=== PATIENT | female | born 1960 | race African-American/Black ===

== ENCOUNTER 2017-12-27 07:43 | Day surgery (SDC) | payer BC ==
[2017-12-26 10:41] VITALS: BMI 33.7
[2017-12-27] MEDS ORDERED: BUPIVACAINE HCL/PF 0.5% (5MG/ML) 10 ML VIAL ONE (09:56)
[2017-12-27] MEDS ORDERED: DEXAMETHASONE SOD PHOSPHATE/PF 10 MG/ML SDV ONE (09:56)
[2017-12-27] MEDS ORDERED: MIDAZOLAM HCL 2 MG/2 ML SINGLE DOSE VIAL ONE ×2 (10:03)
--- NOTE | 2017-12-27 10:07 | HP ---
[facility]ellite [facility] - Chief Complaint Chief Complaint: right shoulder pain - Past Medical History Allergies/Adverse Reactions: Allergies Allergy/AdvReac Type Severity Reaction Status Date / Time No Known Allergies Allergy Verified 12/27/17 08:29 - Current Medications Current Medications: Home Medications Medication Instructions Recorded Atorvastatin Ca [Lipitor] 10 mg PO DAILY 12/26/17 Lisinopril/Hydrochlorothiazide 1 each PO DAILY 12/26/17 [Lisinopril-Hctz 10-12.5 mg Tab] Mv-Mn/Folic Acid/Calcium/Vit K 1 each PO DAILY 12/26/17 [Women's 50 Plus Daily Formula] Ranitidine [Zantac -] 150 mg PO DAILY 12/26/17 Oxycodone HCl/Acetaminophen 1 - 2 tab PO Q6H #50 tab MDD 8 12/27/17 [Percocet 5-325 mg Tablet] Satellite Physical Exam - Physical Examination Vital Signs: Vital Signs Period Temp Pulse Resp BP Sys/Charles Pulse Ox Last 24 Hr 97.6 F 79 18 150/84 97 General Appearance: Well Nourished, Well Developed, Alert & Oriented x3 ENT: Clear Lung: Normal air movement Heart: Regular rate & rhythm Extremities: Other (right shoulder- + ttp, decr rom, + neer, + fay, + empty can, nvi MRI + rct) Neurological: Intact, Alert, Oriented Satellite Impression/Plan - Impression/Plan Impression: right shoulder rct Operative Procedure: right shoulder arthroscopy with RCR, SAD Date to be Performed: 12/27/17
[2017-12-27] MEDS ORDERED: DEXAMETHASONE SOD PHOSPHATE 4 MG/1 ML VIAL ONE (10:35)
[2017-12-27] MEDS ORDERED: fentaNYL CITRATE 250 MCG/5 ML VIAL ONE (10:35)
[2017-12-27] MEDS ORDERED: LIDOCAINE HCL/PF 2% SDV 5ML VIAL ONE (10:35)
[2017-12-27] MEDS ORDERED: PROPOFOL 20 ML ONE (10:36)
[2017-12-27] MEDS ORDERED: ROCURONIUM BROMIDE 50 MG/5 ML VIAL ONE (10:36)
[2017-12-27] MEDS ORDERED: ceFAZolin SODIUM 1 GM VIAL IVPB ONE (10:44)
[2017-12-27] MEDS ORDERED: ceFAZolin SODIUM 1 GM VIAL ONE (10:44)
[2017-12-27] MEDS ORDERED: GLYCOPYRROLATE 0.2 MG/1 ML VIAL ONE ×2 (11:44)
[2017-12-27] MEDS ORDERED: NEOSTIGMINE METHYLSULFATE 0.5 MG/ML - 10 ML MDV ONE (11:44)
--- NOTE | 2017-12-27 11:53 | OP ---
Operative Note - Note: Operative Date: 12/27/17 ([facility]) Pre-Operative Diagnosis: right shoulder rct Operation: right shoulder arthroscopy with RCR, SAD Implants: arthrex speedbridge, 1 swivelock Post-Operative Diagnosis: Same as Pre-op Surgeon: Crow Mccabe Lead Pressman [employer] Printing: Michael Berger) Anesthesiologist/HOOK UP: Darryl Gates Anesthesia: General, Local Specimens Removed: shavings Estimated Blood Loss (mls): 5 Operative Report Dictated: Yes
[2017-12-27] MEDS ORDERED: ONDANSETRON 4 MG/2 ML VIAL IVPUSH PRN (12:58)
[2017-12-27] MEDS ORDERED: oxyCODONE HCL 5 MG TABLET PO PRN (12:58)
[2017-12-27] MEDS ORDERED: LACTATED RINGERS SOLUTION 1,000 ML IV SCH (13:00)
[2017-12-27 13:23] VITALS: TEMP 97.6
[2017-12-27] MEDS ORDERED: ONDANSETRON 4 MG/2 ML VIAL ONE (14:19)
--- NOTE | 2017-12-27 14:50 | SPEC ---
DATE OF OPERATION: 12/27/2017 PREOPERATIVE DIAGNOSIS: Right rotator cuff tear. POSTOPERATIVE DIAGNOSIS: Right rotator cuff tear. PROCEDURE: Arthroscopy, right shoulder, with subacromial debridement of bone and soft tissue, and arthroscopic rotator cuff repair with SpeedBridge. SURGICAL ATTENDING: Michael Berger MD BEHAVIORAL HEALTH CASE MANAGER: LAW Bruno ANESTHESIA: Regional and general. CLOSURE: A SpeedBridge for rotator cuff and 3-0 nylon for skin. ESTIMATED BLOOD LOSS: Negligible. COMPLICATIONS: None. CONDITION: To the recovery room in stable condition. DESCRIPTION OF PROCEDURE: The patient was taken to the operating room on December 27, 2017. General and regional anesthesia was administered by the anesthesiologist. IV Kefzol was administered prophylactically prior to the case. The patient was placed in the beach chair position with all prominences well padded. The right shoulder area was prepped and draped in the usual sterile fashion. First, a diagnostic arthroscopy of the glenohumeral joint was made. Posterior portal was made 2 fingerbreadths below the acromion with a 15 blade followed by a blunt trocar. Circumferential exam of the glenohumeral joint revealed the following: Intact labrum circumferentially, intact glenoid and humeral head articular cartilage, intact biceps and biceps anchor, intact subscapularis through its insertion. Looking superiorly, there was a large rotator cuff tear. The fluid was drained from the shoulder, and the trocar was removed. The posterior trocar was redirected in the subacromial space. An accessory lateral and anterior portal were made with a 15 blade followed by a blunt trocar. The lateral portal was used as the working portal. Through this portal, an ArthroCare device was applied. This was used to debride the soft tissue in the subacromial aspect. The coracoacromial ligament was identified and detached off the anterior acromion and was visualized to drop inferiorly and was further debrided. The bone on the undersurface of the acromion was burred to the appropriate level giving appropriate height for the rotator cuff beneath. Looking inferiorly, there was a large rotator cuff tear, soft tissue encasing the rotator cuff, and the deltoid recess was debrided using ArthroCare device and the shaver. The bed on the greater tuberosity was burred to give a good bed for the double row SpeedBridge repair. A grasper was used to ensure that the rotator cuff was able to be reduced sufficiently to the greater tuberosity. The rotator cuff was freed on the bursal and the articular surface to allow more excursion of the tendon. Two anchors preloaded with FiberTape suture were placed on the articular margin, one more anteriorly, one more posteriorly. They were shuttled through the anterior portal with a grasper. Each limb was individually passed through the rotator cuff, two anteriorly and two posteriorly. One anterior limb and one posterior limb was delivered through the lateral portal. They were placed through the eyelet hole of the more lateral anchor, which was then malleted into place much more laterally, reducing the rotator cuff to the greater tuberosity. The swivel was then screwed into place. The sutures were then cut flush with the bone. Next, one anterior and one posterior limb that was remaining were shuttled from the anterior to the lateral portal. The sutures were placed through the eyelet hole of the anterior anchor, which was malleted on the anterior aspect of the greater tuberosity. After tensioning it, it was deployed the entire way and then screwed home giving an excellent reduction to the anterior portion of the rotator cuff. After the sutures were cut, the rotator cuff was probed and found to have good stability with excellent matting down of the rotator cuff to the greater tuberosity. The shoulder was taken through the range of motion and found to have good clearance on the undersurface of the acromion with good, solid repair. The shoulder was drained of the fluid. The portals were closed with 3-0 nylon suture. A sterile pressure dressing followed by a shoulder immobilizer was applied. The patient was awoken from anesthesia and transferred to recovery room in stable condition. No complications. Estimated blood loss negligible. Johnny [id number]
[2017-12-27 15:27] VITALS: BP 140/74; PULSE 79
--- NOTE | 2017-12-28 17:45 | PATH ---
Surgical Pathology Report Patient Name: JANETTE EASON [facility]. Rec. #: [id number] /Age/Gender: 1960 (Age: 57) / F Account: [id number] Location: [facility] SURGICAL Taken: 12/27/2017 Received: 12/27/2017 Reported: 12/28/2017 Physicians: Michael Berger M.D. Specimen(s) Received RIGHT SHOULDER SHAVINGS Clinical History Right shoulder tear Final Diagnosis SHOULDER SHAVINGS, RIGHT, ARTHROSCOPY: FRAGMENTS OF BENIGN CARTILAGE, SYNOVIUM, AND FIBROADIPOSE TISSUE. Electronically Signed Zohra Corona M.D. Gross Description Received in formalin, labeled "right shoulder shavings," is a 4.3 x 4.0 x 0.3 cm. aggregate of lechuga-yellow soft tissue fragments. A solar sales representative and assessor portion is submitted in one cassette. /12/27/201712/27/2017
--- NOTE | 2018-01-01 10:42 | SPEC ---
DATE OF OPERATION: 12/27/2017 PREOPERATIVE DIAGNOSIS: Right rotator cuff tear. POSTOPERATIVE DIAGNOSIS: Right rotator cuff tear. PROCEDURE: Right shoulder arthroscopy, subacromial debridement of bone and soft tissue, and a right rotator cuff repair arthroscopic with SpeedBridge. SURGICAL ATTENDING: Crow Mccabe MD INVESTIGATIVE RESEARCH SPECIALIST: LAW Bruno and Michael Berger MD ANESTHESIA: Regional and general. CLOSURE: An Arthrex SpeedBridge for repair, 3-0 nylon for skin. ESTIMATED BLOOD LOSS: Negligible. COMPLICATIONS: None. CONDITION: To the recovery room in stable condition. DESCRIPTION OF PROCEDURE: The patient was taken to the operating room on December 27, 2017. General and regional anesthesia was administered by the anesthesiologist. IV Kefzol was administered prophylactically prior to the case. The patient was placed in the beach chair position with all prominences well padded. The right shoulder area was prepped and draped in the usual sterile fashion. First, a diagnostic arthroscopy of the glenohumeral joint was made. Posterior portal was made 2 fingerbreadths below the acromion with a 15 blade followed by a blunt trocar. Circumferential exam of the glenohumeral joint revealed the following: Intact labrum circumferentially, intact glenoid and humeral head articular cartilage, intact biceps and biceps anchor, intact subscapularis through its insertion. Looking superiorly, there was a large rotator cuff tear. The fluid was drained from the shoulder, and the trocar was removed. The posterior trocar was redirected in the subacromial space. An accessory lateral and anterior portal were made with a 15 blade followed by a blunt trocar. The lateral portal was used as the working portal. Through this portal, an ArthroCare device was applied. This was used to debride the soft tissue in the subacromial aspect. The coracoacromial ligament was identified and detached off the anterior acromion and was visualized to drop inferiorly and was further debrided. The bone on the undersurface of the acromion was burred to the appropriate level giving appropriate height for the rotator cuff beneath. Looking inferiorly, there was a large rotator cuff tear, soft tissue encasing the rotator cuff, and the deltoid recess was debrided using ArthroCare device and the shaver. The bed on the greater tuberosity was burred to give a good bed for the double row SpeedBridge repair. A grasper was used to ensure that the rotator cuff was able to be reduced sufficiently to the greater tuberosity. The rotator cuff was freed on the bursal and the articular surface to allow more excursion of the tendon. Two anchors preloaded with FiberTape suture were placed on the articular margin, one more anteriorly, one more posteriorly. They were shuttled through the anterior portal with a grasper. Each limb was individually passed through the rotator cuff, two anteriorly and two posteriorly. One anterior limb and one posterior limb was delivered through the lateral portal. They were placed through the eyelet hole of the more lateral anchor, which was then malleted into place much more laterally, reducing the rotator cuff to the greater tuberosity. The swivel was then screwed into place. The sutures were then cut flush with the bone. Next, one anterior and one posterior limb that was remaining were shuttled from the anterior to the lateral portal. The sutures were placed through the eyelet hole of the anterior anchor, which was malleted on the anterior aspect of the greater tuberosity. After tensioning it, it was deployed the entire way and then screwed home giving an excellent reduction to the anterior portion of the rotator cuff. After the sutures were cut, the rotator cuff was probed and found to have good stability with excellent matting down of the rotator cuff to the greater tuberosity. The shoulder was taken through the range of motion and found to have good clearance on the undersurface of the acromion with good, solid repair. The shoulder was drained of the fluid. The portals were closed with 3-0 nylon suture. A sterile pressure dressing followed by a shoulder immobilizer was applied. The patient was awoken from anesthesia and transferred to recovery room in stable condition. No complications. Estimated blood loss negligible. Johnny [id number]
== END 2017-12-27 15:20 | disposition home or self-care (01) ==
LOC: JASU-SURG 07:43
PROVIDERS: ATTEND Orthopaedic Surgery
PROC: 0RNJ4ZZ Release Right Shoulder Joint, Percutaneous Endoscopic Approach (ICD-10-PCS; 2017-12-27)
PROC: 0RBJ4ZZ Excision of Right Shoulder Joint, Percutaneous Endoscopic Approach (ICD-10-PCS; principal; 2017-12-27 10:15)
PROC: 0LQ14ZZ Repair Right Shoulder Tendon, Percutaneous Endoscopic Approach (ICD-10-PCS; 2017-12-27 10:15)
DX: M75.101 Unspecified rotator cuff tear or rupture of right shoulder, not specified as traumatic (principal)
CPT/HCPCS: 88304-TC; 94760

== ENCOUNTER 2018-10-03 07:08 | Day surgery (SDC) | payer BC ==
[2018-10-02 16:05] VITALS: BMI 36.6
[2018-10-03] MEDS ORDERED: PROPOFOL 20 ML ONE ×5 (07:21→09:32)
[2018-10-03] MEDS ORDERED: SUCCINYLCHOLINE CHLORIDE 200 MG/10 ML VIAL ONE (07:41)
[2018-10-03] MEDS ORDERED: MIDAZOLAM HCL 2 MG/2 ML SINGLE DOSE VIAL ONE ×2 (07:53)
[2018-10-03] MEDS ORDERED: DEXAMETHASONE SOD PHOSPHATE/PF 10 MG/ML SDV ONE (07:58)
--- NOTE | 2018-10-03 08:19 | HP ---
Satellite [facility] - Chief Complaint Chief Complaint: LEFT SHOULDER PAIN History Source: Patient - Past Medical History Allergies/Adverse Reactions: Allergies Allergy/AdvReac Type Severity Reaction Status Date / Time No Known Allergies Allergy Verified 12/27/17 08:29 - Current Medications Current Medications: Home Medications Medication Instructions Recorded Atorvastatin Ca [Lipitor] 10 mg PO DAILY 12/26/17 Lisinopril/Hydrochlorothiazide 1 each PO DAILY 12/26/17 [Lisinopril-Hctz 10-12.5 mg Tab] Mv-Mn/Folic Acid/Calcium/Vit K 1 each PO DAILY 12/26/17 [Women's 50 Plus Daily Formula] Ranitidine [Zantac -] 150 mg PO PRN PRN 12/26/17 Satellite Physical Exam - Physical Examination Vital Signs: Vital Signs Period Temp Pulse Resp BP Sys/Charles Pulse Ox Last 24 Hr 97.9 F-97.9 F 76-76 20-20 142-142/70-70 96 Extremities: Other (+ IMINGEMENT SIGN AND WEAKNESS WITH TDA) Satellite Impression/Plan - Impression/Plan Impression: LEFT SHOULDER IMPINGEMENT +/- RC TEAR Operative Procedure: SHOULDER ARTHROSCOPY AND DECOMPRESSION +/- RC REPAIR Date to be Performed: 10/03/18
[2018-10-03] MEDS ORDERED: ceFAZolin SODIUM 1 GM VIAL IVPB ONE (08:30)
[2018-10-03] MEDS ORDERED: ESMOLOL HCL 100,000 MCG/10 ML VIAL ONE (09:06)
[2018-10-03] MEDS ORDERED: LABETALOL HCL 5 MG/1 ML (100MG/20 ML VIAL) ONE (09:11)
[2018-10-03] MEDS ORDERED: ONDANSETRON 4 MG/2 ML VIAL IVPUSH PRN (09:45)
[2018-10-03] MEDS ORDERED: oxyCODONE HCL 5 MG TABLET PO PRN (09:45)
[2018-10-03] MEDS ORDERED: LACTATED RINGERS SOLUTION 1,000 ML IV SCH (09:45)
--- NOTE | 2018-10-03 09:58 | OP ---
Operative Note - Note: Operative Date: 10/03/18 ([facility]) Pre-Operative Diagnosis: left shoulder rct Operation: left shoulder arthroscopy with RCR, SAD Implants: arthrex speedbridge, 2 swivelocks Post-Operative Diagnosis: Same as Pre-op Surgeon: Crow Mccabe Fruit Rancher: Michael Berger) Anesthesiologist/HEALTHCARE RECEPTIONIST: Trina Mirza Anesthesia: Local, MAC Specimens Removed: shavings Estimated Blood Loss (mls): 10 Operative Report Dictated: Yes
--- NOTE | 2018-10-03 11:55 | OP ---
DATE OF OPERATION: 10/03/2018 PREOPERATIVE DIAGNOSIS: Left rotator cuff tear. POSTOPERATIVE DIAGNOSIS: Left rotator cuff tear. PROCEDURE: Left rotator cuff repair arthroscopically with subacromial debridement. SURGICAL ATTENDING :Crow Ervin MD SCHOOL CLEANER: Michael Berger MD SECOND SECONDARY EDUCATION PROFESSOR: LAW Toribio ANESTHESIA: Regional and general. CLOSURE: SpeedBridge anchors and adjuvant SwiveLock anchors with FiberTape suture for rotator cuff, 3-0 nylon for skin. COMPLICATIONS: None. CONDITION: To recovery room in stable condition. DESCRIPTION OF OPERATIVE PROCEDURE: Patient was taken to the operating room on October 03, 2018. Regional and general anesthesia was administered by the anesthesiologist. IV Kefzol was administered prophylactically prior to the case. Patient was placed in the beach-chair position with all prominences well padded. The left shoulder area was prepped and draped in the usual sterile fashion. First, a diagnostic arthroscopy of the glenohumeral joint was performed. A posterior portal was made 2 fingerbreadths below the acromion first with a 15 blade followed by a blunt trocar. A circumferential examination of the glenohumeral joint revealed the following: Intact glenoid and humeral head articular cartilage, intact labrum circumferentially. No loose bodies in the axillary pouch. Subscapularis was intact to its insertion. The biceps tendon and biceps anchor were intact. However, about 1 cm proximal to its insertion, the biceps tendon had some fraying and accessory anterior portal was made with a spinal needle followed by blunt trocar. A shaver was used to debride off the frayed part of the biceps. The remainder of the biceps seemed to be intact and was left in situ. The fluid was drained from the shoulder, and the trocars were removed. The posterior trocar was redirected in the subacromial space. The accessory lateral portal was made using 15 blade followed by a blunt trocar. First, a large amount of bursal tissue in the subacromial space was debrided using the shaver and acromioplasty was then performed up to the appropriate level getting sufficient height for the rotator cuff. Looking inferiorly, there was a large rotator cuff tear in the supra- and infraspinatus and retracted. All fibers and healing tissue were debrided using the shaver and the ArthroCare device exposing the tear. The greater tuberosity was smoothened. It had some spurs that were formed on its already and left with a wide area of bleeding surface of bone. The SpeedBridge was used to fixate the rotator cuff. Medial row anchors of the articular margin were malletted and screwed into place. The FiberTape sutures that were preloaded were passed in a spread-out fashion through the edge of the rotator cuff docking through an anterior portal after passing each one. One anterior and one posterior limbs were then placed through a posterior anchor and fixated more laterally to the greater tuberosity, and the same was done anteriorly, achieved excellent bite in the greater tuberosity, and a wide area of rotator cuff matting down to the greater tuberosity. There was still, after this fixation, rotator cuff both anteriorly and posteriorly that was not fixated. FiberWire sutures were passed horizontal mattress formation, one anteriorly and one posterior to the repair. Each one of those were repaired individually with SwiveLock anchors to a lateral position on the greater tuberosity. All sutures were cut flush with the bone. Probing of the rotator cuff repair revealed no undue tension on the repair with excellent fixation. Range of motion passively revealed good space in subacromial region and good stability of the repair. The fluid was drained. The portals were closed using 3-0 nylon horizontal mattress sutures. Sterile Aquacel followed by shoulder immobilizer were applied. Patient awakened from anesthesia and transferred to recovery in stable condition. No complications. Estimated blood loss negligible. Johnny [id number]
[2018-10-03 12:20] VITALS: BP 145/66; PULSE 67; TEMP 97.4
--- NOTE | 2018-10-07 08:48 | PATH ---
Surgical Pathology Report Patient Name: JANETTE EASON [facility]. Rec. #: [id number] /Age/Gender: 1960 (Age: 58) / F Account: [id number] Location: [facility] SURGICAL Taken: 10/03/2018 Received: 10/03/2018 Reported: 10/07/2018 Physicians: Johnny Prakash M.D. Specimen(s) Received LEFT SHOULDER SHAVINGS Clinical History Impingement syndrome left shoulder Final Diagnosis LEFT SHOULDER SHAVINGS: FRAGMENTS OF BENIGN FIBROCARTILAGINOUS, ND SYNOVIAL TISSUE WITH DEGENERATIVE CHANGE. UNREMARKABLE SKELETAL MUSCLE FRAGMENTS. Electronically Signed Jf Conde M.D. Gross Description Received in formalin, labeled "left shoulder shavings," is a 4.4 x 4.3 x 0.5 cm. aggregate of lechuga-yellow soft tissue fragments. A mechanical service representative portion is submitted in one cassette. 10/04/201810/04/2018
== END 2018-10-03 12:22 | disposition home or self-care (01) ==
LOC: JASU-SURG 07:08
PROVIDERS: ATTEND Orthopaedic Surgery
PROC: 0LQ24ZZ Repair Left Shoulder Tendon, Percutaneous Endoscopic Approach (ICD-10-PCS; principal; 2018-10-03 08:00)
PROC: 0RNK4ZZ Release Left Shoulder Joint, Percutaneous Endoscopic Approach (ICD-10-PCS; 2018-10-03 08:00)
DX: M75.102 Unspecified rotator cuff tear or rupture of left shoulder, not specified as traumatic (principal)
CPT/HCPCS: 88304-TC; 94760